=== PATIENT | female | born 1945 | race Caucasian/White ===

== ENCOUNTER 2022-09-20 10:59 | Outpatient (CLI) | payer MEDICARE, OTHER ==
[2022-09-20 12:21] VITALS: BP 128/70
--- NOTE | 2022-09-20 12:21 | SLEEP CARE CONSULTATION ---
Information from patient questionnaire entered by Lindsay Joya. I have reviewed and concur with the information entered by Lindsay Joya. This document represents the service I personally performed and the decisions made by me, Wendy Granda ARNP. History of Present Illness Service Date and Time: 09/20/2022 1059 Reason for Visit: New patient, Previously diagnosed sleep apnea, sleep apnea on CPAP therapy Chief Complaint: reports: Other (transfer ) Date of Onset: 12yrs Usual bedtime: 10pm Number of times waking at night: 2-3 Reasons for waking at night: reports: Bathroom Toss, Turn, or Twitch while sleeping: Yes Recalls having dreams: Yes Feels refreshed in the morning: Yes Morning headache: No Sleepy or fatigued during the day: No Ever fallen asleep while driving: No Takes day naps: Yes Dreams during day naps: No Prior sleep studies: Yes Year and Where: 2009 [facility] Additional HPI information: DESTINY STEINBERG was previously diagnosed to have severe, AHI 55.4, obstructive sleep apnea-hypopnea syndrome in 11/2020 through [facility] and comes in today to establish care for CPAP therapy. - Parasomnia Symptoms Ever been unable to move upon waking from sleep: No Walks in sleep: No Talks in sleep: No Ever acted out dreams in sleep: No Ever felt weak in the knees when startled or emotional: No Bothered by creepy, crawly, restless sensations in legs: Yes Problems with memory or concentration: No CPAP Compliance Data - Data Reviewed with Patient Average duration of nightly device use: 8 hours 38 minutes Compliance rate %: 100 (/ days used) Current pressure setting (cmH2O): 6-12 Average residual AHI: 0.4 Central apnea: 0.2 Obstructive apnea: 0.1 Compliance data discussion: She is with [facility] [employer] for her supplies. She is using a [employer] FX for her, small cushion gel mask. She states she had a Fran machine that was on recall. She just received a Dreamstation2. She has been using a ResMed Airsense 10 and states her last sleep provider was ordering her a new machine, Airsense 11, but she has not yet received it. Subjective Patient concerns: reports: dry mouth, nose, throat (occasional dry mouth from oral venting), other (tubing on Airsense 10 is large and not flexible. ). denies: aerophagia, mask discomfort, air blowing in eyes, mask leak noise, condensation in mask/hose, nasal congestion, epistaxis Observed to snore while using device: No Current pressure setting perceived as: comfortable On therapy, patient: reports: sleeping better, awakening more refreshed, being more awake and alert during the day, more rested overall. denies: drowsiness while driving Initial [place] Sleepiness Scale score: 2 (06/14/22) Past Medical History Past Medical History: reports: Arthritis, Anxiety Social History The patient's occupation is a RE. Patient is and lives in . Have you smoked in the past 12 months: No Years of smokin Quit date: 2004 Alcohol use: Yes Alcohol amount and frequency: 1 cup daily Caffeine use: Yes Caffeine amount and frequency: 1-2 cups daily Family History Family history of sleep disordered breathing: Yes Family Hx Sleep Apnea: Sibling: Snoring, Sleep apnea - Treated Allergies and Home Medications Known drug allergies: Yes (codiene) Drug allergies reviewed: Yes Home medication list reviewed: Yes (see updated list in EMR) Review of Systems Weight gain over past 5 years: 10 Cardiovascular: denies: high blood pressure Gastrointestinal: denies: heartburn Neurological: reports: gait or balance problems. denies: headaches Psychiatric: reports: anxiety Endocrine: denies: thyroid disease Musculoskeletal: reports: joint pain, back pain, muscle pain or cramping, mobility problems Physical Exam Vital signs obtained and entered by: LINDSAY Fitch MA Blood Pressure: 128/70 (left arm) Cuff size: regular Heart Rate: 69 O2 Saturation: 98 Height: 5 ft 5 in Weight: 191 lb 12.8 oz Body Mass Index: 31.8 BMI Classification: Obese Neck circumference: 15.5 Impression and Plan 1. Obstructive Sleep Apnea-Hypopnea Syndrome, severe, with good treatment compliance and good apnea control. On CPAP therapy, the patient has better sleep quality and is more rested overall. Destiny states that Dr. Desai was supposed to have ordered an Airsense 11 for her to replace her Airsense 10 because she was eligible for an update. Prior to her current Resmed Airsense 10, she had a Fran machine. She recently received a Dreamstation 2 to replace her old Fran machine. She wants the Resmed Airsense 11 because she likes the Resmed machines. I will reorder an updated machine for patient and follow up with her a month after she receives it to check compliance on new device. She agreed with plan of care. Patient's apnea severity and rationale for treatment to reduce apnea, improve sleep quality and reduce cardiovascular and cerebrovascular events was reviewed. I also reviewed the benefit of consistent device use of CPAP for anxiety. 2. Obesity, unspecified. Currently patients BMI is 31.8. She is trying to lose weight and get regular exercise. Obesity increases the risk of apnea, CPAP pressure requirements and overall health risks especially cardiovascular and diabetes. Thus patient is advised to lose weight. * Change auto CPAP pressure to 6-11 cmH2O * Update machine for ResMed Airsense 11 * Update supplies * Notify me if snoring with mask or feeling that the pressure is too much or too little * Attempt to lose weight * Call this office if any problems using CPAP * Return for follow up one month after she obtains new device, or sooner if concerns arise Counseling Topics: Spare mask, Weight loss health impact Visit Type: In Office Time Spent with Patient (minutes): 35 Provider Statement: I spent 100% of the Face to Face Visit with the patient with greater than 50% spent counseling the patient and coordination of care.
== END 2022-09-20 11:00 | disposition home or self-care (01) ==
LOC: SC 10:59
PROVIDERS: ATTEND Nurse Practitioner Family
DX: G47.33 Obstructive sleep apnea (adult) (pediatric) (principal); E66.9 Obesity, unspecified; Z68.31 Body mass index [BMI] 31.0-31.9, adult; Z87.891 Personal history of nicotine dependence
CPT/HCPCS: 99203; G0463; 99212

== ENCOUNTER 2023-08-30 12:55 | Outpatient (CLI) | payer MEDICARE, OTHER ==
--- NOTE | 2023-08-30 13:32 | Sleep Patient Instructions ---
Sleep Center Visit Summary - Patient Visit Information Reason for Visit: Annual follow-up - Patient Instructions Additional Instructions: You will continue with CPAP therapy with pressure set at 6-11 cmH2O. A supply prescription will be updated with your DME. We encourage you to continue to try to lose weight. Please follow up with the sleep care office in 1 year. - Clinic Information Contact: [facility] [address] [place] [address] [email or web address] T: [phone]
--- NOTE | 2023-08-30 13:37 | SLEEP CARE CONSULTATION ---
Information from patient questionnaire entered by Heraclio Joya. I have reviewed and concur with the information entered by Heraclio Joya. This document represents the service I personally performed and the decisions made by , Wendy Granda ARNP. History of Present Illness Service Date and Time: 08/30/2023 1255 Previous diagnosis: Severe, Obstructive Sleep Apnea-Hypopnea Syndrome AHI: 55.4 (in 2009) Reason for follow up: annual Equipment type: CPAP (RESMED 10; s/u 04/30/2019q) Equipment obtained from: Other ([facility]) Mask style: Nasal (over the nose, gel) Backup mask available: Yes (old mask) Last cushion change: 5 days ago Prior sleep studies: Yes Year and Where: 2009 [facility] additional information: DESTINY STEINBERG was diagnosed to have severe, AHI 55.4, obstructive sleep apnea-hypopnea syndrome and returned today for CPAP therapy annual follow-up. Sleep Study - Results Prior sleep studies: Yes Year and Where: 2009 [facility] CPAP Compliance Data - Data Reviewed with Patient Average duration of nightly device use: 8 HRS 23 MINS Compliance rate %: 99 (08/27/22-08/26/23; 363/365 days used) Current pressure setting (cmH2O): 6-11 Average residual AHI: 0.5 Central apnea: 0.2 Obstructive apnea: 0.2 Average large leak: 0.2 L/min Subjective Patient concerns: denies: aerophagia, mask discomfort, air blowing in eyes, mask leak noise, condensation in mask/hose, nasal congestion, dry mouth, nose, throat, epistaxis Observed to snore while using device: No Current pressure setting perceived as: comfortable On therapy, patient: reports: sleeping better, awakening more refreshed, being more awake and alert during the day, more rested overall. denies: drowsiness while driving Initial [place] Sleepiness Scale score: 2 (06/14/22) Current [place] Sleepiness Scale score: 2 (08/30/23) Allergies and Home Medications Known drug allergies: Yes (as listed) Drug allergies reviewed: Yes Home medication list reviewed: Yes (no changes) Allergy and home medication list: Allergies codeine Allergy (Verified 09/20/22 11:20) Review of Systems Review of systems same as previous: Yes (NO CHANGE) Physical Exam Vital signs obtained and entered by: HERACLIO Fitch MA Blood Pressure: 142/61 (LEFT ARM) Cuff size: regular Heart Rate: 78 O2 Saturation: 97 Height: 5 ft 5 in Weight: 191 lb 12.8 oz Body Mass Index: 31.8 BMI Classification: Obese Impression and Plan 1. Obstructive Sleep Apnea-Hypopnea Syndrome, moderate, with good treatment compliance and good apnea control. On CPAP therapy, the patient has better sleep quality and is more rested overall. I discussed with patient that she is multiple for a new machine this April 2024. She states she will follow-up at that time when ready to update her machine. I will update her supply prescription. Patient has significant improvement of their sleep apnea and is satisfied with current CPAP therapy. Patient denies problems with oral dryness, nasal congestion, epistaxis, skin irritation or aerophagia. Patient's apnea severity and rationale for treatment to reduce apnea, improve sleep quality and reduce cardiovascular and cerebrovascular events was reviewed. I also reviewed the benefit of consistent device use of CPAP for anxiety. 2. Obesity, unspecified. Currently patients BMI is 31.8. Obesity increases the risk of apnea, CPAP pressure requirements and overall health risks especially cardiovascular and diabetes. Thus patient is advised to lose weight. * Continue auto CPAP pressure at 6-11 cmH2O * Update supply prescription * Notify me if snoring with mask or feeling that the pressure is too much or too little * Attempt to lose weight * Call this office if any problems using CPAP * Return for follow up in 12 months, or sooner if concerns arise Counseling Topics: Spare mask, Weight loss health impact Prescriptions: Device supplies Follow up with Sleep Care in: 1 year Visit Type: In Office Time Spent with Patient (minutes): 20 Provider Statement: I spent 100% of the Face to Face Visit with the patient with greater than 50% spent counseling the patient and coordination of care.
[2023-08-30 14:00] VITALS: BP 142/61; O2SAT 97
== END 2023-08-30 12:56 | disposition home or self-care (01) ==
LOC: SC 12:55
PROVIDERS: ATTEND Nurse Practitioner Family
DX: G47.33 Obstructive sleep apnea (adult) (pediatric) (principal); E66.9 Obesity, unspecified; Z68.31 Body mass index [BMI] 31.0-31.9, adult
CPT/HCPCS: 99213; G0463; 99212